=== PATIENT | female | born 1995 | race Two or more races ===

== ENCOUNTER 2023-07-08 11:06 | Emergency (ER) | payer OTHER ==
[~2023-07-08] VITALS: Ht 162.6 cm; Wt 89.4 kg
[2023-07-08 11:35] VITALS: BP 140/81; PULSE 84; RESP 16; TEMP 98.3; O2SAT 100
== END 2023-07-08 14:38 | disposition home or self-care (01) ==
LOC: ER 11:06
DX: S09.90XA Unspecified injury of head, initial encounter (principal); W22.8XXA Striking against or struck by other objects, initial encounter; Y93.89 Activity, other specified; Y92.89 Other specified places as the place of occurrence of the external cause; Y99.8 Other external cause status
CPT/HCPCS: 70450; 81025